=== PATIENT | male | born 1960 | race Caucasian/White ===

== ENCOUNTER → 2018-07-16 | Outpatient (CLI) | payer OTHER ==
[~2018-07-16] MED LIST: ASPIRIN81 M1 PO; ASPIRIN81 MG PO; GADOBENATE DIMEGLUMINE 1 ML IV ONE; HYDROCODON-ACE1 EA10 PO; INVOKANA PO; JANUVIA100 MG PO; LISINOPRIL2.5 MG PO; METFORMIN HCL500 M1 PO; METFORMIN HCL500 MG PO; PROMETHAZINE HC25 M1 PO; SIMVASTATIN20 MG PO; ZALEPLON5 MG PO
[2018-07-16 14:49] LABS: BLOOD UREA NITROGEN 20 mg/dL (7-26); BUN/CREATININE RATIO 17 (6-25); EST GLOMERULAR FILTRATION RATE > 60 ML/MIN (60-)
--- NOTE | 2018-07-16 16:55 | Diagnostic Imaging Report ---
TECHNIQUE: Magnetic resonance imaging of the LEFT HIP was performed WITH injected contrast, 20 cc of MultiHance. Per report, the insurance company would not approve an MRI without contrast or with and without contrast, but the inclusion of without contrast enhancement images is medically necessary to optimally evaluate the soft tissues and bones. HISTORY: Sprain, pain, locking COMPARISON: None available. FINDINGS: Bone: No focal or infiltrative bone marrow replacing abnormality. No osteonecrosis or acute fracture. Femoroacetabular Joint: Acetabular labrum: Mild complex tearing and subtle focal partial detachment of the anterosuperior labrum. Articular Cartilage: No focal defect. Muscle and tendons: The visualized tendons appear intact. Soft tissues: Otherwise, unremarkable. IMPRESSION: 1. Mild degenerative tearing of the anterosuperior labrum. 2. Otherwise, unremarkable. Signed by: Dr. Franco Colby D.O., M.M.M. on 07/16/2018 4:52 PM
== END ==
LOC: MRI 13:52
PROVIDERS: ATTEND Family Medicine
DX: S73.192A Other sprain of left hip, initial encounter (principal)
CPT/HCPCS: 36415; 73722; 82565; 84520; A9577

== ENCOUNTER → 2019-03-17 | Day surgery (SDC) | payer OTHER ==
--- NOTE | 2019-03-16 11:30 | NUR ---
Reviewed pre-op instructions and soap instructions with patient. Patient verbalized understanding and had no questions at this time. Copies of pre-op instructions and soap instructions provided to patient. Patient refused to receive copies of pre-op instructions and soap instructions.
[2019-03-16 12:03] LABS: BASOPHILS % 0.5 % (0.0-1.0); EOSINOPHILS # (AUTO) 0.2 (0.0-0.4); EOSINOPHILS % 2.4 % (0.0-6.0); HEMATOCRIT 44.9 % (38.2-49.6); HEMOGLOBIN 14.8 g/dL (14.0-18.0); LYMPHOCYTES # (AUTO) 1.3 (1.0-3.2); LYMPHOCYTES % 21.1 % (18.0-39.1); MEAN CORPUSCULAR HEMOGLOBIN 27.2 pg (28-32); MEAN CORPUSCULAR VOLUME 82.4 fL (81-99); MONOCYTES # (AUTO) 0.5 (0.2-0.8); MONOCYTES % 8.4 % (4.4-11.3); NEUTROPHILS # (AUTO) 4.2 (2.1-6.9); NEUTROPHILS % 67.4 % (38.7-80.0); PLATELET COUNT 153 x10e3/uL (140-360); RED BLOOD COUNT 5.45 x10e6/uL (4.3-5.7); RED CELL DISTRIBUTION WIDTH 12.5 % (11.7-14.4)
[2019-03-16 12:28] LABS: INR 0.92; PROTHROMBIN TIME 12.8 seconds (11.9-14.5)
[2019-03-16 12:35] LABS: ALANINE AMINOTRANSFERASE 33 IU/L (0-55); ALBUMIN 4.3 g/dL (3.5-5.0); ALBUMIN/GLOBULIN RATIO 1.3 (0.8-2.0); ALKALINE PHOSPHATASE 39 IU/L (40-150); ANION GAP 13.6 mmol/L (8-16); BLOOD UREA NITROGEN 18 mg/dL (7-26); BUN/CREATININE RATIO 15 (6-25); CALCIUM 9.8 mg/dL (8.4-10.2); CARBON DIOXIDE 26 mmol/L (22-29); CHLORIDE 104 mmol/L (98-107); CREATININE, SERUM 1.21 mg/dL (0.72-1.25); EST GLOMERULAR FILTRATION RATE > 60 ML/MIN (60-); GLUCOSE 117 mg/dL (74-118); POTASSIUM 4.6 mmol/L (3.5-5.1); SODIUM 139 mmol/L (136-145)
[~2019-03-17] VITALS: Ht 180.3 cm; Wt 91.6 kg
[2019-03-17] VITALS (9 sets, daily range): BP systolic 103–150; BP diastolic 66–99
[~2019-03-17] MED LIST changes: +ADENOSINE 3MG/1ML 30ML VIAL ONE; +ASPIRIN 325 MG TAB ONE; +ATORVASTATIN CA20 MG PO; +BRILINTA90 MG PO; +FENTANYL CITRATE/PF 100MCG/2 ML INJ ONE; -GADOBENATE DIMEGLUMINE 1 ML IV ONE; +HEPARIN SOD (PORCINE) 1000 UNIT/ML 30ML ONE; +HEPARIN SOD/SOD CHLORIDE 2,000 ML ONE; +IOPAMIDOL 370 MG/ML 200 ML INFUS..BTL INJ ONE; +LIDOCAINE HCL 2% LOCAL 20 ML VIAL ONE; +MIDAZOLAM HCL 2 MG/2 ML VIAL ONE; +NITROGLYCERIN/D5W 200 MCG/ML 250 ML ONE; +SODIUM CHLORIDE 0.9% 50ML 50 ML ONE; +TICAGRELOR 90 MG TABLET ONE; +VERAPAMIL HCL 2.5 MG/ML 2 ML VIAL ONE
--- OUTSIDE RECORDS SUMMARY | 2019-03-17 09:44 | XMS REPORT ---
Author Author [facility] Address Unknown Phone Unavailable Care Team Providers Care Bulk Tank Driver Name Role Phone LISET DE OLIVEIRA Unavailable Unavailable Main SCHAFFER Unavailable Unavailable Problems This patient has no known problems. Allergies, Adverse Reactions, Alerts This patient has no known allergies or adverse reactions. Medications This patient has no known medications. Results Test Description Test Time Test Comments Text Results Atomic Results Result Comments MRI HIP LEFT W 2018-07-16 15:54:00 [place] [address] Patient Name: LUIS ANTONIO VENTURA MR #: [id number] : 1960 Age/Sex: 58/M Req #: [id number] Adm Physician: Ordered by: LISET DE OLIVEIRA DO Report #: [id number] Location: MRI Room/Bed: Procedure: [id number] MRI/MRI HIP LEFT W Exam Date: 07/16/18 Exam Time: 1500 REPORT STATUS: Signed TECHNIQUE: Magnetic resonance imaging of the LEFT HIP was performed WITH injected contrast, 20 cc of MultiHance. Per report, the insurance company would not approve an MRI without contrast or with and without contrast, but the inclusion of without contrast enhancement images is medically necessary to optimally evaluate the soft tissues and bones. HISTORY: Sprain, pain, locking COMPARISON: None available. FINDINGS: Bone: No focal or infiltrative bone marrow replacing abnormality. No osteonecrosis or acute fracture. Femoroacetabular Joint: Acetabular labrum: Mild complex tearing and subtle focal partial detachment of the anterosuperior labrum. Articular Cartilage: No focal defect. Muscle and tendons: The visualized tendons appear intact. Soft tissues: Otherwise, unremarkable. IMPRESSION: 1. Mild degenerative tearing of the anterosuperior labrum. 2. Otherwise, unremarkable. Signed by: Dr. Yu Colby D.O., M.M.M. on 07/16/2018 4:52 PM Dictated By: YU COLBY DO 51 Transcribed By: ANTOINETTE on 07/16/181651 COPY TO: LISET DE OLIVEIRA DO CT BRAIN WO [place] [address] Patient Name: LUIS ANTONIO VENTURA MR #: [id number] : 1960 Age/Sex: 56/M Req #: [id number] Adm Physician: Ordered by: OTTO SCHAFFER MD Report #: [id number] Location: ER Room/Bed: Procedure: [id number] CT/CT BRAIN WO Exam Date: 02/01/17 Exam Time: 1415 REPORT STATUS: Signed History:56-year-old male with dizziness Comparison studies:None Technique: Axial images were obtained from the skull base to the vertex. Coronal and sagittal images reconstructed from the axial data. Intravenous contrast: None Findings: Scalp/skull: No abnormalities. Extra- axial spaces: No masses. No fluid collections. Brain sulci: Normal Ventricles: No hydrocephalus. Parenchyma: No masses, hemorrhage, acute or chronic cortical vascular insults. Sellar/suprasellar region: No abnormalities. Craniocervical junction: Patent foramen magnum. No Chiari one malformation. Incidental findings: Atherosclerotic calcifications in the carotid siphons . Impression: No acute abnormalities. Images and preliminary report where reviewed and a final report issued by Dr. Edison valdez uroradiologist on 02/01/2017 at 6:20 PM. Please note that the patient's last name in the report of the study is Luis Antonio Ventura however the CT images study the patient's last name is Luis Antonio Srivastava. Signed by: Dr. Malvin Hogan M.D. on 02/01/2017 6:49 PM Dictated By: MALVIN HOGAN MD 48 Transcribed By: ANTOINETTE on 02/01/171848 COPY TO: OTTO SCHAFFER MD
--- NOTE | 2019-03-17 10:00 | NUR ---
1000t in #9, prepped for procedure. Alert oriented and appropriate, PERRLA, respirations even and unlabored to room air. Pulses x4 extremities equal and strong. Pedal pulses PT/DP and marked. Cap fill brisk < 3 sec. bilateral feet pink and warm. Report to Jame RN Skin warm and dry integrity appears intact in general. IV 20g left lateral ac started and presents healthy w/o s/s of infiltration or complaint. Abdomen soft and supple. pt offered toileting, denies need to urinate or defecate. Personal affects with patient. Family at bedside. Pt and family ()verbalizes understanding of POC. No Pre-Op Meds given. bed low and locked, side rails up x2 and call light at side.ds/rn
--- NOTE | 2019-03-17 12:11 | NUR ---
1211 bedside report received from DOC Kilgore.Identiferx2. Alert oriented and appropriate, PERRLA, respirations even and unlabored to room air. Pulses x4 extremities equal and strong. Pedal pulses PT/DP X4and marked. Cap fill brisk < 3 sec.TR band down Skin warm and dry integrity appears D/I. IV 20g to left ac 100cc hr via cont presents healthy w/o s/s of infiltration or complaint. Abdomen soft and supple. pt offered toileting, denies need to urinate or defecate. No personal affects with patient. Family at BS. Pt and family verbalizes understanding of POC. Currently w/o complaint of pain or need.ds/rn
--- NOTE | 2019-03-17 13:30 | NUR ---
1330 RADIAL Compression removal: Initial Cuff volume 12 cc 1330 -2 cc Removed No hematoma/bleeding noted with normal neurovascular function. 1345 -5cc Removed No hematoma/ bleeding noted with normal neurovascular function. 1400 -5cc Removed No hematoma/bleeding noted with normal neurovascular function. Air removal completed. Stasis achieved sterile 2x2,Tegaderm, Coban dressing No hematoma, bleeding noted with normal neurovascular function. Wrist splint in place. Pt instructed on POC. Ds/Rn
--- NOTE | 2019-03-17 14:30 | NUR ---
1430 assist to bathroom Tolerated well Dressed and ready for dc. 1500pm Pt meets DC criteria. Rt radial assessed for s/s of complication and presence of hematoma. Skin warm, dry, no discolor, and pulses present. IV removed from left ac. Distal tip appears intact. VS WNL. Pt denies pain, sob, or need at this time. at bedside. Review of discharge paperwork and follow up instructions. verbalized understanding. Pt to wheelchair and transported to front of hospital. Transferred to private vehicle under own strength w/o incident with DC paperwork in hand. - ds/rn
--- NOTE | 2019-03-17 18:58 | Operative Report ---
DATE OF PROCEDURE: 03/17/2019 SURGEON: Ramrio Alamo, Cardiology Procedure Note. PROCEDURES PERFORMED: 1. Conscious sedation 45 minutes. 2. Selective coronary angiography x2. 3. Left heart catheterization. 4. Fractional flow reserve measurement of the LAD. 5. Percutaneous coronary intervention of the LAD. ESTIMATED BLOOD LOSS: Less than 10 mL. SPECIMENS REMOVED: None. PREPROCEDURE DIAGNOSES: Abnormal stress test showing apical ischemia. POSTPROCEDURE DIAGNOSIS: Coronary artery disease. PROCEDURE DETAILS: After informed consent was obtained, the patient was brought to the cardiac catheterization laboratory in a fasting and nonsedated state. Bilateral groins and right wrist were prepped and draped in the usual sterile fashion. The patient received midazolam and was monitored by myself and nursing. A 2% lidocaine was infiltrated over the right anterior wrist for local anesthesia. Using the micropuncture needle, the right radial artery was accessed via the modified Seldinger technique and a 5/6 slender sheath was placed. Next, diagnostic coronary angiography and left heart catheterization was performed using a TIG-4 catheter. Diagnostic imaging revealed mid LAD 70% stenosis. I crossed this with a Comet FFR wire and lowest reading was 0.8. Given the fact he has apical ischemia and FFR of 0.8, percutaneous coronary intervention was deemed necessary. The lesion was pre-dilated with a 2.5 balloon, then stented with a 3 x 24 Synergy drug-eluting stent. This was then postdilated with a 3.25 noncompliant balloon. Final angiography revealed excellent angioplasty results with no significant stenosis, dissection, or distal embolization. The patient tolerated the procedure well with no immediate complications and transferred back to his room in stable condition. PROCEDURE FINDINGS: 1. Left main coronary artery is patent without significant disease. 2. Left anterior descending coronary artery has a mid 70% stenosis. 3. Left circumflex coronary artery provides 3 obtuse marginal vessels with mild luminal irregularities. 4. The right coronary artery is a dominant vessel and provides the posterior descending coronary artery. The proximal to mid RCA has a 20% to 30% stenosis. The distal RCA has a 40-50% nonflow limiting stenosis. 5. Left ventricular end-diastolic pressure was 10 mmHg with no aortic valve gradient present upon pullback. IMPRESSION: Coronary artery disease status post percutaneous coronary intervention to the LAD. RECOMMENDATIONS: Continue dual antiplatelet therapy and aggressive medical therapy. DO JOSE DAVID Todd/SOL /[id number]
== END | disposition home or self-care (01) ==
LOC: CATH LAB 09:38
PROVIDERS: ATTEND Internal Medicine Cardiovascular Disease
DX: I25.10 Atherosclerotic heart disease of native coronary artery without angina pectoris (principal); I10 Essential (primary) hypertension; E78.00 Pure hypercholesterolemia, unspecified; E11.9 Type 2 diabetes mellitus without complications; Z88.8 Allergy status to other drugs, medicaments and biological substances; Z01.812 Encounter for preprocedural laboratory examination; Z79.82 Long term (current) use of aspirin; Z79.84 Long term (current) use of oral hypoglycemic drugs
CPT/HCPCS: 36415; 80053; 85025; 85610; 92928; 93458; 93571; C1725 ×2; C1753; C1874; C1887; J0153; J1644; J2001; J2250; J3010; Q9967; 99152; 99153

== ENCOUNTER 2019-03-19 13:16 | Emergency (ER) | payer OTHER ==
[~2019-03-19] VITALS: Ht 180.3 cm; Wt 91.6 kg
[~2019-03-19 13:16] MED LIST changes: -ADENOSINE 3MG/1ML 30ML VIAL ONE; -ASPIRIN 325 MG TAB ONE; -ATORVASTATIN CA20 MG PO; -BRILINTA90 MG PO; -FENTANYL CITRATE/PF 100MCG/2 ML INJ ONE; -HEPARIN SOD (PORCINE) 1000 UNIT/ML 30ML ONE; -HEPARIN SOD/SOD CHLORIDE 2,000 ML ONE; -IOPAMIDOL 370 MG/ML 200 ML INFUS..BTL INJ ONE; -LIDOCAINE HCL 2% LOCAL 20 ML VIAL ONE; -MIDAZOLAM HCL 2 MG/2 ML VIAL ONE; -NITROGLYCERIN/D5W 200 MCG/ML 250 ML ONE; -SODIUM CHLORIDE 0.9% 50ML 50 ML ONE; -TICAGRELOR 90 MG TABLET ONE; -VERAPAMIL HCL 2.5 MG/ML 2 ML VIAL ONE
[2019-03-19] MEDS ORDERED: BRILINTA90 MG PO (13:43)
[2019-03-19] MEDS ORDERED: ATORVASTATIN CA20 MG PO (13:43)
[2019-03-19] MEDS ORDERED: DEXAMETHASONE SOD PHOS 10 MG/1 ML VIAL IM NR (14:00)
--- NOTE | 2019-03-19 14:11 | Diagnostic Imaging Report ---
EXAMINATION: CHEST 2 VIEWS INDICATION: Possible stroke. COMPARISON: None FINDINGS: TUBES and LINES: None. LUNGS: Lungs are mildly hypoinflated. There are mild bibasilar atelectasis. There is no evidence of pneumonia or pulmonary edema. PLEURA: No pleural effusion or pneumothorax. HEART AND MEDIASTINUM: The cardiomediastinal silhouette is unremarkable. BONES AND SOFT TISSUES: No acute osseous lesion. Soft tissues are unremarkable. UPPER ABDOMEN: No free air under the diaphragm. There are cholecystectomy clips. IMPRESSION: No acute thoracic abnormality. Signed by: Dr. Jie Ty M.D. on 03/19/2019 2:07 PM
--- NOTE | 2019-03-19 14:13 | Diagnostic Imaging Report ---
EXAMINATION: Head CT HISTORY: Left facial weakness, evaluate for acute stroke. COMPARISON: Head CT 02/01/2017 TECHNIQUE: Multidetector axial images were obtained without contrast from the foramen magnum to the vertex . The images were reconstructed using brain and bone algorithms. Thin section brain images were reformatted into coronal and sagittal planes. Image quality: Motion/streaking artifact limits the evaluation of the skull base and posterior cranial fossa. Dose modulation, iterative reconstruction, and/or weight based adjustment of the mA/kV was utilized to reduce the radiation dose to as low as reasonably achievable. FINDINGS: Parenchyma: 1. No abnormal densities. 2. No mass or hemorrhage. No CT evidence of acute territorial vascular insult. Extra-axial spaces:No abnormal density. No extra-axial fluid collections Brain volume: Normal for age. Ventricles: No hydrocephalus or displacement. Arteries: No density suggestive of thrombus. Dural sinuses: No abnormal density. Extra-axial spaces: No abnormal density. Foramen magnum: No mass, Chiari malformation, or basilar invagination. Sella: No obvious mass. Paranasal/mastoid sinuses: Imaged portions unremarkable. Skull/Scalp: No lytic or blastic lesions. No fractures. IMPRESSION: No intracranial abnormality, particularly no hemorrhage or acute cortical infarct. Signed by: Dr. Shanti Hogan M.D. on 03/19/2019 2:10 PM
[2019-03-19 14:22] LABS: BASOPHILS % 0.4 % (0.0-1.0); EOSINOPHILS # (AUTO) 0.1 (0.0-0.4); EOSINOPHILS % 1.7 % (0.0-6.0); HEMATOCRIT 44.7 % (38.2-49.6); HEMOGLOBIN 15.1 g/dL (14.0-18.0); LYMPHOCYTES # (AUTO) 1.1 (1.0-3.2); LYMPHOCYTES % 15.7 % (18.0-39.1); MEAN CORPUSCULAR HEMOGLOBIN 27.2 pg (28-32); MEAN CORPUSCULAR HGB CONC 33.8 g/dL (31-35); MEAN CORPUSCULAR VOLUME 80.5 fL (81-99); MONOCYTES # (AUTO) 0.6 (0.2-0.8); MONOCYTES % 7.8 % (4.4-11.3); NEUTROPHILS # (AUTO) 5.2 (2.1-6.9); PLATELET COUNT 161 x10e3/uL (140-360); RED BLOOD COUNT 5.55 x10e6/uL (4.3-5.7); RED CELL DISTRIBUTION WIDTH 12.4 % (11.7-14.4)
[2019-03-19 14:34] LABS: INR 0.9; PROTHROMBIN TIME 12.6 seconds (11.9-14.5)
[2019-03-19 14:46] LABS: ALBUMIN 4.4 g/dL (3.5-5.0); ALBUMIN/GLOBULIN RATIO 1.4 (0.8-2.0); ANION GAP 16.8 mmol/L (8-16); CREATININE, SERUM 1.27 mg/dL (0.72-1.25); POTASSIUM 3.8 mmol/L (3.5-5.1)
[2019-03-19 14:52] LABS: CREATINE KINASE MB 1.5 ng/mL (0-5.0)
== END 2019-03-19 15:25 | disposition home or self-care (01) ==
LOC: ER 13:16
DX: R53.1 Weakness (principal); G51.0 Bell's palsy; I10 Essential (primary) hypertension; E11.9 Type 2 diabetes mellitus without complications; E78.5 Hyperlipidemia, unspecified
CPT/HCPCS: 36415; 70450; 71046; 80053; 82550; 82553; 84484; 85025; 85610; 85730; 99284; J1100

== ENCOUNTER 2021-07-02 16:59 | Emergency (ER) | payer OTHER ==
[~2021-07-02] VITALS: Ht 180.3 cm; Wt 91.6 kg
[~2021-07-02 16:59] MED LIST changes: +ATORVASTATIN CA20 MG PO; +BRILINTA90 MG PO
[2021-07-02] MEDS ORDERED: TETANUS/DIPHTHERIA TOX ADULT 0.5 ML SYR IM ONE (17:30)
[2021-07-02] MEDS ORDERED: LIDOCAINE 1% W/EPINEPHRINE 20 ML VIAL INJ ONE (17:30)
== END 2021-07-02 18:30 | disposition home or self-care (01) ==
LOC: ER 17:18
DX: S81.011A Laceration without foreign body, right knee, initial encounter (principal); W45.8XXA Other foreign body or object entering through skin, initial encounter; Y93.H2 Activity, gardening and landscaping; Y92.007 Garden or yard of unspecified non-institutional (private) residence as the place of occurrence of the external cause; I10 Essential (primary) hypertension; E11.9 Type 2 diabetes mellitus without complications; E78.5 Hyperlipidemia, unspecified; I25.10 Atherosclerotic heart disease of native coronary artery without angina pectoris; E78.00 Pure hypercholesterolemia, unspecified
CPT/HCPCS: 90471; 90714; 99284